=== PATIENT | female | born 1990 | race Caucasian/White ===

== ENCOUNTER 2018-11-23 20:01 | Emergency (ER) | payer SELFPAY ==
[~2018-11-23] VITALS: Ht 154.9 cm; Wt 54.4 kg
== END 2018-11-23 22:06 | disposition home or self-care (01) ==
LOC: ER 20:01
DX: S01.512A Laceration without foreign body of oral cavity, initial encounter (principal); S01.81XA Laceration without foreign body of other part of head, initial encounter; S00.83XA Contusion of other part of head, initial encounter; K08.119 Complete loss of teeth due to trauma, unspecified class
CPT/HCPCS: 12011; 70486; 90714; 99284-25; J1885